=== PATIENT | female | born 1990 | race Caucasian/White ===

== ENCOUNTER 2024-05-06 13:11 | Emergency (ER) | payer OTHER, SELFPAY ==
[2024-05-06 13:15] VITALS: BP 134/82
--- NOTE | 2024-05-06 14:49 | ED.SKININJ ---
HPI-Injury
General
Chief Complaint: Skin Problem
Source: patient
Exam Limitations: none
Time Seen by Provider: 05/06/24 14:02
Nursing documentation reviewed up to this point in time: agreed with
History of Present Illness-Injury
Initial Injury comments:
34-year-old female with no significant past medical history presents for a painful swollen area right labia. Denies fever or chills, denies N/V. Patient went to urgent care yesterday and was given a prescription for doxycycline, has had 3 doses.
Past History
Past History
ED Past Medical History: None
ED Past Surgical History: None
Social History
Tobacco: Smoker
Alcohol: Occasional
Personal: Single
Living: with family
Employment: Employed
Review of Systems
Review of Systems
Allergies reviewed?: Yes
All Other Systems: ROS reviewed and negative except as documented in HPI and ROS
Constitutional: Denies fever or chills
ABD/GI: Denies abdominal pain, nausea or vomiting
: Denies dysuria, frequency or difficulty voiding
Skin: Reports other (Painful swollen area right labia)
Skin Exam
Abscess
Right labia majora:
Description of abscess: fluctuant and well organized
Surrounding skin:: inflammed at abscess site
Phy Exam
Physical Exam
Physical Exam:
GENERAL: No acute distress. A&Ox3.
CONSTITUTIONAL: Afebrile.
RESPIRATORY: Regular respirations, nonlabored, lungs clear.
CARDIOVASCULAR: Regular rate and rhythm, no murmurs, no rubs.
GI: Soft, nontender, normal BS
MUSCULOSKELETAL: Moves with ease. Well perfused.
SKIN: Warm, dry, pink
PSYCH: Normal mood and affect. Well kept, interactive and appropriate
NEUROLOGIC: Awake, alert and oriented. No focal neurological deficits
Course
Vital Signs
Initial and Last Documented VS:
Initial Vital Signs
Temp Pulse Resp BP Pulse Ox
98.5 F 95 16 134/82 99
05/06/24 13:15 05/06/24 13:15 05/06/24 13:15 05/06/24 13:15 05/06/24 13:15
Last Documented Vital Signs
Temp Pulse Resp BP Pulse Ox
98.5 F 95 16 134/82 99
05/06/24 13:15 05/06/24 13:15 05/06/24 13:15 05/06/24 13:15 05/06/24 13:15
Procedures
Incision/Drainage/Joint Aspiration
Right labia majora:
Anethesia: 1% Lidocaine with Epi
Preparation: cleaned with Betadine
Type of procedure: incise and drain
Nature of site: cyst (Bartholin cyst)
Description of abscess: greater than 3cm and involved incision
Loculations broken up: Yes
How much fluid was obtained?: small amount
Fluid description: purulent
Treatment: packed with gauze
MDM/Problems Addressed
Differential Diagnosis Includes:
Skin abscess, Bartholin cyst
MDM/Problems Addressed:
34-year-old female with no significant past medical history presents for a painful swollen area right labia. Denies fever or chills, denies N/V. Patient went to urgent care yesterday and was given a prescription for doxycycline, has had 3 doses.
Bartholin cyst drained, Word catheter would not stay in so gauze packing inserted.
Patient tolerated procedure well
*Critical Care Note
Total Time (30-74mins, 75-104mins- exclusive of procedures): Not Applicable
ED Attending Note
-
Portions of this chart may have been created with voice recognition software.� Occasional wrong word or��sound alike� substitutions may have occurred due to the inherent limitations of voice recognition software.
Discharge Plan
Departure
Patient Disposition: Home (Routine Discharge)
Date of Disposition: 05/06/24
Time of Disposition: 15:00
Patient with high blood pressure during this ER visit?: No
Condition: Good
Discharge Problem:
Abscess of Bartholin gland
Instructions: Bartholin gland cyst, Abscess incision and drainage - ED discharge instructions
Referrals:
[facility] doctor [Other] - As needed
NONE,* [Family Provider] -
Stand Alone Forms: Return to Work
Activity Restrictions/Additional Instructions:
As we discussed, warm water soaks twice a day or let the warm shower water run over the area. If the packing has not fallen out in 3 days, remove it and wash the area daily with soap and water and place a clean gauze dressing over the area until
well-healed
It will take about 2 weeks for this to heal, in 3 weeks, you may resume normal activity such as lengthy walking or running, exercising or sexual activity
Tylenol or ibuprofen as needed for pain
See your [facility] doctor or return here if it becomes more infected, more swollen, more painful, pus drainage, fever or feeling sicker in any way
Continue the doxycycline as ordered
Interventions
Interventions:
*Risk Screen - Suicide Last Done: 05/06/24 13:15
*General Assessment Last Done: 05/06/24 13:15
*Neglect/Abuse Screening Last Done: 05/06/24 13:15
*ED COVID-19 Vaccine History Last Done: 05/06/24 13:51
*Nursing Disposition Last Done: 05/06/24 15:30
ED-Skin Assessment Last Done: 05/06/24 13:51
Discharge Date and Time
Discharge Date/Time: 05/06/24 15:30
Print Language: SWEDISH
== END 2024-05-06 15:30 | disposition home or self-care (01) ==
LOC: EMR 13:11
PROVIDERS: EMERGENCY PHYSICIAN Emergency Medicine
DX: N75.1 Abscess of Bartholin's gland (principal); F17.200 Nicotine dependence, unspecified, uncomplicated
CPT/HCPCS: 99283; 56420